=== PATIENT | female | born 1940 | race Caucasian/White ===

== ENCOUNTER → 2017-04-23 | Outpatient (CLI) | payer MEDICARE, OTHER ==
[~2017-04-23] MED LIST: ALPR0.5T6 PO; AMLO2.5T PO; ASPI-496 PO; ATOR40TA78 PO; CALC-141 PO; CHOL20002 PO; FLUO10CA7 PO; FLUT1DIS IH; LOVA40TA2 PO; METO1TAB6 PO; ZOLE5INF IV
== END | disposition home or self-care (01) ==
LOC: WOUND 07:50
PROVIDERS: ATTEND Internal Medicine Infectious Disease
DX: S81.811A Laceration without foreign body, right lower leg, initial encounter (principal); I25.2 Old myocardial infarction; I25.83 Coronary atherosclerosis due to lipid rich plaque; J45.20 Mild intermittent asthma, uncomplicated; F41.1 Generalized anxiety disorder; I10 Essential (primary) hypertension; E78.5 Hyperlipidemia, unspecified; Z72.89 Other problems related to lifestyle; Z90.710 Acquired absence of both cervix and uterus; X58.XXXA Exposure to other specified factors, initial encounter; Y93.89 Activity, other specified; Y92.89 Other specified places as the place of occurrence of the external cause
CPT/HCPCS: 97597; G0463; WOU0463

== ENCOUNTER → 2017-04-30 | Outpatient (CLI) | payer MEDICARE, OTHER | END | disposition home or self-care (01) | LOC: WOUND 13:15 | PROVIDERS: ATTEND Nurse Practitioner Family | DX: S81.811D Laceration without foreign body, right lower leg, subsequent encounter (principal); J45.20 Mild intermittent asthma, uncomplicated; I10 Essential (primary) hypertension; F41.9 Anxiety disorder, unspecified; E78.5 Hyperlipidemia, unspecified; I25.2 Old myocardial infarction; F41.1 Generalized anxiety disorder; Z98.62 Peripheral vascular angioplasty status; Z72.89 Other problems related to lifestyle; Z90.710 Acquired absence of both cervix and uterus; X58.XXXD Exposure to other specified factors, subsequent encounter | CPT/HCPCS: 97597 ==

== ENCOUNTER → 2017-05-21 | Outpatient (CLI) | payer MEDICARE, OTHER | END | disposition home or self-care (01) | LOC: WOUND 13:07 | PROVIDERS: ATTEND Nurse Practitioner Family | DX: S81.811D Laceration without foreign body, right lower leg, subsequent encounter (principal); I25.2 Old myocardial infarction; I25.83 Coronary atherosclerosis due to lipid rich plaque; J45.20 Mild intermittent asthma, uncomplicated; F41.1 Generalized anxiety disorder; I10 Essential (primary) hypertension; E78.5 Hyperlipidemia, unspecified; F41.9 Anxiety disorder, unspecified; Z72.89 Other problems related to lifestyle; Z98.62 Peripheral vascular angioplasty status; Z90.710 Acquired absence of both cervix and uterus; X58.XXXD Exposure to other specified factors, subsequent encounter | CPT/HCPCS: G0463; WOU0463 ==

== ENCOUNTER → 2017-06-11 | Outpatient (CLI) | payer MEDICARE, OTHER | END | disposition home or self-care (01) | LOC: WOUND 14:00 | PROVIDERS: ATTEND Nurse Practitioner Family | DX: S81.811D Laceration without foreign body, right lower leg, subsequent encounter (principal); I25.2 Old myocardial infarction; I25.83 Coronary atherosclerosis due to lipid rich plaque; J45.20 Mild intermittent asthma, uncomplicated; F41.1 Generalized anxiety disorder; I10 Essential (primary) hypertension; E78.5 Hyperlipidemia, unspecified; Z72.89 Other problems related to lifestyle; Z98.62 Peripheral vascular angioplasty status; Z90.710 Acquired absence of both cervix and uterus; X58.XXXD Exposure to other specified factors, subsequent encounter | CPT/HCPCS: G0463; WOU0463 ==

== ENCOUNTER → 2017-07-31 | Outpatient (CLI) | payer MEDICARE, OTHER | END | disposition home or self-care (01) | LOC: WOUND 08:14 | PROVIDERS: ATTEND Internal Medicine | DX: S81.801D Unspecified open wound, right lower leg, subsequent encounter (principal); E78.5 Hyperlipidemia, unspecified; I10 Essential (primary) hypertension; I25.2 Old myocardial infarction; I25.83 Coronary atherosclerosis due to lipid rich plaque; J45.909 Unspecified asthma, uncomplicated; F41.9 Anxiety disorder, unspecified; Z90.710 Acquired absence of both cervix and uterus; W45.8XXD Other foreign body or object entering through skin, subsequent encounter | CPT/HCPCS: 11042 ==

== ENCOUNTER → 2017-08-07 | Outpatient (CLI) | payer MEDICARE, OTHER | END | disposition home or self-care (01) | LOC: WOUND 09:05 | PROVIDERS: ATTEND Internal Medicine | DX: L97.212 Non-pressure chronic ulcer of right calf with fat layer exposed (principal); F41.9 Anxiety disorder, unspecified; I10 Essential (primary) hypertension; E78.5 Hyperlipidemia, unspecified; I25.2 Old myocardial infarction; J45.909 Unspecified asthma, uncomplicated; Z90.710 Acquired absence of both cervix and uterus | CPT/HCPCS: 11042 ==

== ENCOUNTER → 2017-08-14 | Outpatient (CLI) | payer MEDICARE, OTHER | END | disposition home or self-care (01) | LOC: WOUND 09:25 | PROVIDERS: ATTEND Internal Medicine | DX: L97.212 Non-pressure chronic ulcer of right calf with fat layer exposed (principal); E78.5 Hyperlipidemia, unspecified; I10 Essential (primary) hypertension; I25.2 Old myocardial infarction; J45.909 Unspecified asthma, uncomplicated; F41.9 Anxiety disorder, unspecified; Z90.710 Acquired absence of both cervix and uterus | CPT/HCPCS: 97597 ==

== ENCOUNTER → 2017-08-21 | Outpatient (CLI) | payer MEDICARE, OTHER | END | disposition home or self-care (01) | LOC: WOUND 09:30 | PROVIDERS: ATTEND Internal Medicine | DX: L97.212 Non-pressure chronic ulcer of right calf with fat layer exposed (principal); F41.9 Anxiety disorder, unspecified; I10 Essential (primary) hypertension; E78.5 Hyperlipidemia, unspecified; I25.2 Old myocardial infarction; J45.909 Unspecified asthma, uncomplicated; Z90.710 Acquired absence of both cervix and uterus | CPT/HCPCS: 97597 ==

== ENCOUNTER → 2017-09-04 | Outpatient (CLI) | payer MEDICARE, OTHER | END | disposition home or self-care (01) | LOC: WOUND 09:24 | PROVIDERS: ATTEND Internal Medicine | DX: L97.218 Non-pressure chronic ulcer of right calf with other specified severity (principal); E78.5 Hyperlipidemia, unspecified; I10 Essential (primary) hypertension; J45.909 Unspecified asthma, uncomplicated; I25.2 Old myocardial infarction; F41.9 Anxiety disorder, unspecified; Z90.710 Acquired absence of both cervix and uterus | CPT/HCPCS: G0463; WOU0463 ==

== ENCOUNTER 2019-06-30 05:42 | Day surgery (SDC) | payer MEDICARE, OTHER ==
[~2019-06-30] VITALS: Ht 162.6 cm; Wt 45.2 kg
[~2019-06-30 05:42] MED LIST changes: +ALBU8.5H8 INH; -AMLO2.5T PO; +AMLO2.5T5 PO; +ASCO-96 PO; +CALC1CAP8 PO; -CHOL20002 PO; +CHOL200052 PO; +FLUO10CA14 PO; -FLUO10CA7 PO; +GLUC1CAP18 PO; +SERT50TA28 PO; +TRIA10.8 NAS
[2019-06-30] MEDS ORDERED: LACTATED RINGERS 1,000 ML IV SCH (06:36)
[2019-06-30 06:37] VITALS: BP 137/88
[2019-06-30] MEDS ORDERED: PROPOFOL 10 MG/ML, 20ML ONE ×3 (06:58)
[2019-06-30] MEDS ORDERED: LIDOCAINE-MPF 2% ,5ML ONE (06:58)
[2019-06-30 07:03] VITALS: BP 137/88
[2019-06-30] MEDS ORDERED: ALBUTEROL/IPRATROPIUM 2.5MG/0.5MG, 3 ML ONE (07:19)
[2019-06-30] MEDS ORDERED: ALBUTEROL/IPRATROPIUM 2.5MG/0.5MG, 3 ML NPPB PRN (07:30)
== END 2019-06-30 10:10 | disposition home or self-care (01) ==
LOC: OUT 05:42
PROVIDERS: ATTEND Internal Medicine Geriatric Medicine
DX: K86.89 Other specified diseases of pancreas (principal); K29.50 Unspecified chronic gastritis without bleeding; K26.9 Duodenal ulcer, unspecified as acute or chronic, without hemorrhage or perforation; I25.2 Old myocardial infarction; J45.909 Unspecified asthma, uncomplicated; I25.10 Atherosclerotic heart disease of native coronary artery without angina pectoris; I10 Essential (primary) hypertension; Z79.82 Long term (current) use of aspirin; Z88.5 Allergy status to narcotic agent; Z95.5 Presence of coronary angioplasty implant and graft
CPT/HCPCS: 43242; 88305; 93005; 94640; J2704; J7120